=== PATIENT | female | born 1985 | race African-American/Black ===

== ENCOUNTER 2017-09-15 18:15 | Emergency (ER) | payer MEDICAID ==
[~2017-09-15] VITALS: Ht 170.2 cm; Wt 88.0 kg
[2017-09-15 19:34] VITALS: BP 127/84; PULSE 82; RESP 20; TEMP 98; O2SAT 99
[2017-09-15 19:36] VITALS: BP 138/81; PULSE 74; RESP 20; TEMP 98; O2SAT 98
[2017-09-15] MEDS ORDERED: BIRTH CONTROL (19:38)
--- NOTE | 2017-09-15 20:20 | RADRPT ---
EXAM DATE: 09/15/2017 8:08 PM EDT AGE/SEX: 32 years / Female INDICATIONS: Fall this afternoon. CLINICAL DATA: This is the patient's initial encounter. Patient reports that signs and symptoms have been present for 1 day and indicates a pain score of 5/10. MEDICAL/SURGICAL HISTORY: None. None. COMPARISON: No prior exams available for comparison. FINDINGS: Views of the right ankle demonstrate soft tissue swelling. Ankle mortise intact. No fracture. Moderat e plantar calcaneal spur. CONCLUSION: No acute fracture. Soft tissue swelling. Electronically signed by: Brock Rosenberg MD 09/15/2017 8:18 PM EDT
[2017-09-15] MEDS ORDERED: ACETAMINOPHEN/HYDROcodone 325 MG/5 MG TAB PO ONE (21:00)
--- NOTE | 2017-09-15 21:00 | PD ---
HPI Chief Complaint: Injury Time Seen by Provider: 20:44 Travel History International Travel<30 days: No Contact w/Intl Traveler<30days: No Traveled to known affect area: No History of Present Illness HPI 32-year-old black female presents emergency department for evaluation of right foot pain after fall going down the stairs earlier today. She states that she has some mild back pain. She denies any injury to her head, or neck. No chest pain or shortness of breath. No nausea vomiting. PFSH Past Medical History Anemia: Yes Diminished Hearing: No Immunizations Current: Yes Tetanus Vaccination: Unknown Influenza Vaccination: No ?: Not LMP: 07-02-17 Past Surgical History Surgical History: No Previous Surgery Social History Alcohol Use: No Tobacco Use: No Substance Use: No Allergies-Medications (Allergen,Severity, Reaction): Coded Allergies: No Known Allergies (Unverified , 09/15/17) Reported Meds & Prescriptions Reported Meds & Active Scripts Active Reported [ Control] Review of Systems General / Constitutional: No: Fever Eyes: No: Visual changes HENT: No: Headaches, Neck Stiffness, Neck Pain Cardiovascular: No: Chest Pain or Discomfort Respiratory: No: Shortness of Breath Gastrointestinal: No: Abdominal Pain Genitourinary: No: Dysuria Musculoskeletal: Positive: Arthralgias, Limited ROM, Edema, Pain, No: Weakness Skin: No Rash Neurologic: No: Weakness, Paresthesia Psychiatric: No: Depression Endocrine: No: Polydipsia Hematologic/Lymphatic: No: Easy Bruising Physical Exam Narrative GENERAL: Well-developed, well-nourished in no apparent distress. Nontoxic appearing. HEAD: Normocephalic, atraumatic. EYES: Pupils equal round and reactive. Extraocular motions intact. No scleral icterus. No injection or drainage. ENT: Nose clear. Throat without erythema, tonsillar hypertrophy or exudate. Uvula midline. Airway patent. NECK: Trachea midline. Supple, nontender, moves head freely. No central bony tenderness or spasm. CARDIOVASCULAR: Regular rate and rhythm without murmurs, gallops, or rubs. RESPIRATORY: Clear to auscultation. Breath sounds equal bilaterally. No wheezes , rales, or rhonchi. GASTROINTESTINAL: Abdomen soft, non-tender, nondistended. No hepato-splenomegaly , or palpable masses. No guarding. EXTREMITIES: Examination of the right lower extremity reveals pain to the proximal forefoot with mild swelling. The skin is intact. No pain in the distal forefoot or toes. No pain in the heel or Achilles. No pain in the medial or lateral malleolus. No pain in the knee or hip. She has intact sensation with good distal pulses. Left lower extremity as well as upper extremities are without localizing bony tenderness or deformity. No vascular intact. BACK: No central bony tenderness to palpation of the dorsal lumbar spine. Patient does complain of some myofascial lower back tenderness but has full range of motion. Neurovascular intact distally. Without deformity. No flank tenderness. NEUROLOGICAL: Awake, alert and oriented x 3 .Cranial nerves grossly intact. Motor and sensory grossly within normal limits. Normal speech. Data Data Last Documented VS Vital Signs Date Time Temp Pulse Resp B/P (MAP) Pulse Ox O2 Delivery O2 Flow Rate FiO2 09/15/17 19:36 98.0 74 20 138/81 (100) 98 Room Air Orders Orders Ankle, Complete (Gun2sud) (09/15/17 ) Foot, Complete ([id number]) (09/15/17 20:51) Ice/Cold Pack (09/15/17 20:51) Splint Or Brace Apply/Monitor (09/15/17 20:51) Crutches (09/15/17 20:51) Acetamin-Hydrocod 325-5 Mg ([place] 5-325 (09/15/17 21:00) MDM Medical Decision Making Medical Screen Exam Complete: Yes Emergency Medical Condition: Yes Medical Record Reviewed: Yes Interpretation(s) Right ankle: Negative for bony injury. Right foot: Negative for acute bony injury Differential Diagnosis MDM: High Differential diagnoses: Fracture, sprain, strain, dislocation, contusion, neurovascular injury Narrative Course Patient given ice pack, [place] 5 mg p.o., Delfin wrap and crutches. X-ray of the right ankle was ordered in triage but unfortunately her pain is in her foot. X- ray of her right foot has been ordered. X-rays of the right foot and ankle are negative for bony injury. Patient's given Delfin wrap. This is right foot sprain Diagnosis Primary Impression: Right foot sprain Patient Instructions: General Instructions Additional Instructions: Rest. Elevation. Ice packs for the next 3 days. Delfin wrap and crutches. No weight-bearing and then progress to weight-bearing as tolerated. Medications as directed Follow-up with an orthopedist or your doctor in one week. Return to the ER if any problems Med/Other Pt SpecificInfo: Prescription(s) given, Orthopedic Instructions Disposition: 01 DISCHARGE HOME Condition: Stable Rickey Son Sep 15, 2017 21:00
[2017-09-15] MEDS ORDERED: DICL75TA PO (22:00)
--- NOTE | 2017-09-15 22:04 | RADRPT ---
EXAM DATE: 09/15/2017 9:59 PM EDT AGE/SEX: 32 years / Female INDICATIONS: Fall this afternoon. CLINICAL DATA: This is the patient's initial encounter. Patient reports that signs and symptoms have been present for 1 day and indicates a pain score of 5/10. MEDICAL/SURGICAL HISTORY: None. None. COMPARISON: No prior exams available for comparison. FINDINGS: Bony structures are intact and in normal alignment. Osseous density is normal. Soft tissue swelling. No radiopaque foreign bodies seen. CONCLUSION: Soft tissue swelling without fracture. Electronically signed by: Brock Rosenberg MD 09/15/2017 10:03 PM EDT
== END 2017-09-15 23:54 | disposition home or self-care (01) ==
LOC: NEPD 18:15
DX: S93.601A Unspecified sprain of right foot, initial encounter (principal); M54.5 Low back pain; W10.9XXA Fall (on) (from) unspecified stairs and steps, initial encounter
CPT/HCPCS: 73610; 73630; 99283; E0113